=== PATIENT | female | born 1985 | race American Indian/Alaskan Native ===

== ENCOUNTER 2017-08-28 11:37 | Emergency (ER) | payer SELFPAY ==
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
[2017-08-28] MEDS ORDERED: NACL 0.9% 1000 ML 1,000 ML IV ONE (16:25)
[2017-08-28 17:08] LABS: Basophils # (Auto) 0.1 K/mm3 (0.0-0.1); Basophils % (Auto) 0.9 % (0.0-1.8); Eosinophils # (Auto) 0.2 K/mm3 (0.0-0.4); Eosinophils % (Auto) 2.6 % (0.0-4.3); Hematocrit 39.2 % (30.3-42.9); Hemoglobin 12.4 gm/dl (10.1-14.3); Lymphocytes # (Auto) 2.3 K/mm3 (1.2-5.4); Lymphocytes % (Auto) 38.7 % (13.4-35.0); Mean Corpuscular HGB Conc 32 % (30-34); Mean Corpuscular Volume 78 fl (79-97); Monocytes # (Auto) 0.6 K/mm3 (0.0-0.8); Monocytes % (Auto) 9.8 % (0.0-7.3); Platelet Count 241 K/mm3 (140-440); Red Cell Distribution Width 18.2 % (13.2-15.2)
[2017-08-28 17:14] LABS: Alanine Aminotransferase 9 units/L (7-56); Albumin 3.9 g/dL (3.9-5); BUN/Creatinine Ratio 14; Blood Urea Nitrogen 7 mg/dL (7-17); Hemolysis Index 21; Lipase 28 units/L (13-60)
[2017-08-28 17:17] LABS: Bilirubin,Direct < 0.2 mg/dL (0-0.2)
[2017-08-28 17:19] LABS: Mean Corpuscular Hemoglobin 25 pg (28-32)
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
--- NOTE | 2017-08-28 19:07 | Cat Scan Report ---
FINAL REPORT PROCEDURE: CT ABDOMEN PELVIS W CON TECHNIQUE: Computerized axial tomography of the abdomen and pelvis was performed after the IV injection of iodinated nonionic contrast. HISTORY: Abdominal Pain COMPARISON: No prior studies are available for comparison. FINDINGS: Lower Lung mary: No focal abnormality seen. Upper Abdomen: The liver is unremarkable. Gallbladder is mildly contracted otherwise unremarkable. The adrenal glands, the pancreas and spleen show no focal abnormalities. Kidneys, Ureters and Urinary bladder: There is mild rotational anomaly of the right kidney. Renal pelvises rotated anteriorly, normal variant. The kidneys and the ureters otherwise are unremarkable.. Urinary bladder is only partially filled and difficult to characterize although shows no gross abnormality.. Retroperitoneum: Abdominal aorta appears normal. Nonspecific subcentimeter lymph nodes are seen in the retroperitoneum. No pathologically enlarged lymph nodes are identified. Bowel: Moderate amount of stool seen throughout most of the colon. The patient may be constipated. Colon is otherwise unremarkable. Small bowel loops show no abnormalities. No evidence of bowel obstruction ascites or free intraperitoneal gas. Normal-appearing appendix is seen in the right mid pelvis laterally. Reproductive organs: Uterus is unremarkable. There is a slightly irregular cyst visualized in the left ovary suggesting recently ruptured follicle. Other: There are healing fractures involving the inferior pubic ramus on the left. Callus formation is visualized. I do not see evidence of complete bony union at this time. The fractures are visualized on images 182 through 189 series 3 axial images. There is a linear band of increased density oriented anteriorly in the left sacral ala. I cannot exclude a mild impaction fracture. This is seen on image 128 series 3. No other acute bony abnormalities are identified. There are multiple nodular densities projecting in the subcutaneous tissues of the right side of the buttocks measuring up to 2.3 x 1.3 centimeters. There appear to be 5 nodules similar in size and appearance. IMPRESSION: Healing fractures left inferior pubic ramus. Possible nondisplaced healing fracture left sacral ala. Stool pattern as described. The patient may be constipated. Slightly irregular cyst visualize left ovary suggesting recently ruptured follicle. Indeterminate nodular density subcutaneous tissues right side of the buttocks as described. Etiology is uncertain. I cannot adenopathy. Multifocal abscess not entirely excluded. This could be related to old resolving hematoma. Correlation with physical exam recommended. These abnormalities are seen on images 114 through image 129 series 3 axial image.
[2017-08-28 20:22] LABS: Bilirubin,Urine NEG (Negative); Blood,Urine NEG (Negative); Color,Urine Straw (Yellow); Nitrite,Urine NEG (Negative); Protein,Urine <15 mg/dL mg/dL (Negative); Urobilinogen,Urine < 2.0 mg/dL (<2.0)
[2017-08-28 20:29] LABS: Amphetamine Screen,Urine PRESUMPTIVE NEGATIVE; Benzodiazepines Screen,Urine PRESUMPTIVE NEGATIVE; Cannabinoid Screen,Urine PRESUMPTIVE NEGATIVE; Cocaine Screen,Urine PRESUMPTIVE NEGATIVE; Methadone Screen,Urine PRESUMPTIVE NEGATIVE; Opiate Screen,Urine PRESUMPTIVE NEGATIVE
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
[2017-08-28 21:06] VITALS: BP 115/73
== END 2017-08-28 21:06 | disposition home or self-care (01) ==
LOC: ED 11:37
DX: M53.3 Sacrococcygeal disorders, not elsewhere classified (principal)
CPT/HCPCS: 36415; 70450; 74177; 80048; 80074; 80307; 81001; 82150; 83690; 84702; 85025; 93970; 96360; 99284; G0480; J7030; Q9967; 80320